=== PATIENT | male | born 1995 | race Caucasian/White ===

== ENCOUNTER 2019-12-29 10:21 | Emergency (ER) | payer SELFPAY ==
[~2019-12-29] VITALS: Ht 175.3 cm; Wt 81.8 kg
[2019-12-29] MEDS ORDERED: TRIA15OI TP (10:45)
[2019-12-29] MEDS ORDERED: IV NORMAL SALINE 1,000ML 1,000 ML IV ONE (10:45)
--- NOTE | 2019-12-29 10:45 | PHYS DOC ---
Past History Past Medical History: No Pertinent History Past Surgical History: Other Additional Past Surgical Histo: L Shoulder Alcohol Use: Rarely General Adult EDM: Chief Complaint: WEAKNESS/GENERALIZED HPI: HPI: 24-year-old male presents with generalized weakness. The patient has been feeling well. He has been on and off of quarantine for COVID-19 based on exposures. His was confirmed + over 2 weeks ago. He just came off quarantine and went to work 2 days ago. Today he just feels generally fatigued and worn out all over. He denies cough, congestion, fever, chills. We drink energy drink for he came here today. He has been eating and drinking normally. He also has a small area of rash on his bilateral forearms. He wonders if it is poison elisabeth. Review of Systems: Review of Systems: Constitutional: Denies fever or chills. Fatigue Eyes: Denies change in visual acuity HENT: Denies nasal congestion or sore throat Respiratory: Denies cough or shortness of breath Cardiovascular: Denies chest pain or edema GI: Denies abdominal pain, nausea, vomiting, bloody stools or diarrhea : Denies dysuria Musculoskeletal: Denies back pain or joint pain Integument: Rash Neurologic: Denies headache, focal weakness or sensory changes Endocrine: Denies polyuria or polydipsia Lymphatic: Denies swollen glands Psychiatric: Denies depression or anxiety Current Medications: Current Meds: Current Medications Medications (Trade) Dose Ordered Sig/Juliet Start Time Stop Time Status Last Admin Dose Admin Sodium Chloride 1,000 ml @ 1,000 mls/hr 1X ONCE 12/29/19 10:45 12/29/19 11:44 UNV Allergies: Allergies: Allergies Coded Allergies Type Severity Reaction Last Updated Verified aspirin Allergy Unknown 12/29/19 Yes Physical Exam: PE: Constitutional: Well developed, well nourished, no acute distress, non-toxic appearance. [] HENT: Normocephalic, atraumatic, bilateral external ears normal, oropharynx moist, no oral exudates, nose normal. [] Eyes: PERRLA, EOMI, conjunctiva normal, no discharge. [] Neck: Normal range of motion, no tenderness, supple, no stridor. [] Cardiovascular: Heart rate regular rhythm, no murmur [] Lungs & Thorax: Bilateral breath sounds clear to auscultation [] Abdomen: Bowel sounds normal, soft, no tenderness, no masses, no pulsatile masses. [] Skin: Small vesicular patches on the bilateral forearms consistent with poison elisabeth. [] Back: No tenderness, no CVA tenderness. [] Extremities: No tenderness, no cyanosis, no clubbing, ROM intact, no edema. [] Neurologic: Alert and oriented X 3, normal motor function, normal sensory function, no focal deficits noted. [] Psychologic: Affect normal, judgement normal, mood normal. [] Current Patient Data: Vital Signs: Vital Signs Date Time Temp Pulse Resp B/P (MAP) Pulse Ox O2 Delivery O2 Flow Rate FiO2 12/29/19 10:32 98.4 86 14 141/84 (103) 99 Room Air EKG: EKG: [] Radiology/Procedures: Radiology/Procedures: [] Impressions: EXAMINATION: CHEST AP ONLY CLINICAL HISTORY: Weakness EXAM DATE/TIME: 12/29/2019 10:38 AM COMPARISON: None FINDINGS: Lines, Tubes, and Devices: None. Cardiomediastinal Silhouette: Within normal limits. Lungs and Pleura: No evidence of focal airspace consolidation, pleural effusion, or pneumothorax. Bones and Soft Tissues: No acute osseous abnormality. IMPRESSION: No evidence of acute cardiopulmonary abnormality. Electronically signed by: Jose Raul Ocampo DO (12/29/2019 10:57 AM) [id number] DICTATED AND SIGNED BY: JOSE RAUL OCAMPO DO DATE: 12/29/19 1057 CC: JULITA SCOTT DO; PCP,NO ~ Heart Score: Risk Factors: Risk Factors: DM, Current or recent (<one month) smoker, HTN, HLP, family history of CAD, obesity. Risk Scores: Score 0 - 3: 2.5% MACE over next 6 weeks - Discharge Home Score 4 - 6: 20.3% MACE over next 6 weeks - Admit for Clinical Observation Score 7 - 10: 72.7% MACE over next 6 weeks - Early Invasive Strategies Course & Med Decision Making: Course & Med Decision Making Pertinent Labs and Imaging studies reviewed. (See chart for details) The patient's labs are unremarkable. His urinalysis is unremarkable. His chest x-ray is negative for acute findings. The patient's rash is consistent with poison elisabeth. It is mild so I will treat him with triamcinolone topical cream. He is stable for discharge once time. [] Bartolo Disclaimer: Bartolo Disclaimer: This electronic medical record was generated, in whole or in part, using a voice recognition dictation system. Departure Departure: Impression: Primary Impression: Fatigue Additional Impression: Poison elisabeth Disposition: 01 DC HOME SELF CARE/HOMELESS Condition: STABLE Referrals: PCP,NO (PCP) Patient Instructions: Poison Elisabeth, [id number] Scripts Triamcinolone Acetonide (TRIAMCINOLONE ACETONIDE 0.1% OINT) 15 Gm Oint...g. 1 JEREMIAS TP BID for poison elisabeth, #1 TUBE Prov: JULITA SCOTT DO 12/29/19 JULITA SCOTT DO Dec 29, 2019 10:45
--- NOTE | 2019-12-29 11:00 | RAD ---
EXAMINATION: CHEST AP ONLY CLINICAL HISTORY: Weakness EXAM DATE/TIME: 12/29/2019 10:38 AM COMPARISON: None FINDINGS: Lines, Tubes, and Devices: None. Cardiomediastinal Silhouette: Within normal limits. Lungs and Pleura: No evidence of focal airspace consolidation, pleural effusion, or pneumothorax. Bones and Soft Tissues: No acute osseous abnormality. IMPRESSION: No evidence of acute cardiopulmonary abnormality. Electronically signed by: Jose Raul Kraft DO (12/29/2019 10:57 AM) [id number]
[2019-12-29 11:21] LABS: BASO % 1 % (0-3); EOS # 0.1 x10^3/uL (0.0-0.7); EOS % 1 % (0-3); HEMATOCRIT 46.5 % (39.0-53.0); HEMOGLOBIN 15.8 g/dL (13.0-17.5); LYMPH # 2.7 x10^3/uL (1.0-4.8); LYMPH % 40 % (24-48); MEAN CORPUSCULAR HEMOGLOBIN 30 pg (25-35); MEAN CORPUSCULAR HGB CONC 34 g/dL (31-37); MEAN CORPUSCULAR VOLUME 90 fL (79-100); MONO # 0.5 x10^3/uL (0.0-1.1); MONO % 8 % (0-9); NEUT # 3.4 x10^3uL (1.8-7.7); NEUT % 50 % (31-73); PLATELET COUNT 234 x10^3/uL (140-400); RED BLOOD COUNT 5.19 x10^6/uL (4.30-5.70); WHITE BLOOD COUNT 6.8 x10^3/uL (4.0-11.0)
[2019-12-29 11:25] LABS: CALCIUM 9.7 mg/dL (8.5-10.1); GFR 92.6; POTASSIUM 3.9 mmol/L (3.5-5.1)
[2019-12-29 11:31] LABS: ALBUMIN 4.3 g/dL (3.4-5.0); ALBUMIN/GLOBULIN RATIO 1.3 (1.0-1.7); TOTAL BILIRUBIN 1.2 mg/dL (0.2-1.0); TOTAL PROTEIN 7.5 g/dL (6.4-8.2)
[2019-12-29 12:20] VITALS: BP 138/80
[2019-12-29 12:21] LABS: BILIRUBIN,URINE NEG (NEG); CLARITY,URINE CLEAR; COLOR,URINE YELLOW; GLUCOSE,URINE NEG (NEG); NITRITE,URINE NEG (NEG); RBC,URINE OCC /HPF (0-2); UROBILINOGEN,URINE 0.2 mg/dL (0.2 mg/dL)
[2019-12-29 12:22] LABS: BACTERIA,URINE 0 /HPF (0-FEW); SQUAMOUS EPITHELIAL CELL,UR OCC /LPF; WBC,URINE OCC /HPF (0-4)
== END 2019-12-29 12:53 | disposition home or self-care (01) ==
LOC: ER 10:21
DX: L23.7 Allergic contact dermatitis due to plants, except food (principal); R53.83 Other fatigue; R53.1 Weakness; Z88.6 Allergy status to analgesic agent
CPT/HCPCS: 36415; 71045; 80053; 81001; 85025; 96360; 96361; 99284; J7030